=== PATIENT | male | born 1960 | race Caucasian/White ===

== ENCOUNTER 2016-07-28 10:20 | Emergency (ER) | payer MEDICARE, OTHER ==
[2016-07-28] MEDS ORDERED: LORazepam 2 MG/ML VIAL IVP ONE (10:35)
[2016-07-28] MEDS ORDERED: fentaNYL CITRATE/PF 100 MCG/ 2ML AMP IVP ONE (10:37)
--- NOTE | 2016-07-28 10:39 | ED Physician Documentation ---
Hand Injury - HISTORIAN Historian: patient, friend - [facility] Chief Complaint: Hand Injury Additional Information: sat in folding metal chair lt mid finger distal phalynx smash and lac w/nail avulsion Onset: just prior to arrival Where: home Severity: moderate Context: laceration, crush Location of Injury: L hand Modifying Factors: pain on movement Further Comments: yes (pt quite anxious and c/o sig pain) - ROS CONST: no problems GI/: denies: problems urinating, nausea, vomiting NEURO: none CVS/RESP: none EYES/ENT: none - PAST HX Past History: asthma (ethanol abuse--mild mental challenge--gerd--asthma-- anxiety) Allergies/Adverse Reactions: Allergies Allergy/AdvReac Type Severity Reaction Status Date / Time carbamazepine [From Tegretol] Allergy Verified 07/28/16 10:55 cephalexin monohydrate Allergy Verified 07/28/16 10:55 [From Keflex] ibuprofen [From Motrin] Allergy Verified 07/28/16 10:55 penicillin V Allergy Verified 07/28/16 10:55 Penicillins Allergy Verified 07/28/16 10:55 Home Medications: Ambulatory Orders Medication Instructions Recorded Acetaminophen [Tylenol] 325 mg PO Q4 PRN 07/28/16 Divalproex Sodium [Depakote] 500 mg PO 714 07/28/16 Hydrochlorothiazide 25 mg PO 07/28/16 LORazepam [Ativan] 0.5 mg PO 07/28/16 Lisinopril [Zestril] 40 mg PO 07/28/16 Mag Hydrox/Al Hydrox/Simeth 355 ml PO 07/28/16 [Antacid Liquid] - SOCIAL HX Smoking History: non-smoker Alcohol Use: none (x 23 yrs) Drug Use: none - FAMILY HX Family History: no significant history - REVIEWED ASSESSMENTS Nursing Assessment Reviewed: Yes Vitals Reviewed: Yes ED Results Lab/Radiology - Radiology Radiology Impressions: xray=open communited displaced fx lt middle finger - Orders Orders: ED Orders Category Date Time Status Place Saline Lock/IV Now Care 07/28/16 10:35 Ordered FINGER 2 VIEWS OR MORE [RAD] Stat Exams 07/28/16 Ordered LORazepam [Ativan] Med 07/28/16 10:35 Once 1 mg IVP NOW ONE fentaNYL CITRATE/PF [Duragesic] Med 07/28/16 10:37 Once 50 mcg IVP NOW ONE Hand Injury Physical Exam - Exam General Appearance: mild distress, anxious Hand: other (crush lac as abovve) Wrist: normal inspection Neuro: sensation nml, motor nml, digital nerve deficit (mild) Vascular: no vascular compromise Forearm/Elbow/Arm: uninjured above wrist Skin: warm/dry, normal color. No: cyanosis, diaphoresis, jaundice Head/ENT: nml inspection Neck/Back: nml inspection Resp/CVS: chest non-tender, breath sounds nml, heart sounds nml, no resp. distress, lungs clear, reg. rate & rhythm Abdomen: non-tender Discharge Clincal Impression: comminuted open displaced finger fx Home Medications: Ambulatory Orders Acetaminophen [Tylenol] 325 mg PO Q4 PRN 07/28/16 Divalproex Sodium [Depakote] 500 mg PO 714 07/28/16 Hydrochlorothiazide 25 mg PO 07/28/16 LORazepam [Ativan] 0.5 mg PO 07/28/16 Lisinopril [Zestril] 40 mg PO 07/28/16 Mag Hydrox/Al Hydrox/Simeth [Antacid Liquid] 355 ml PO 07/28/16 Comments: disc w/pt caregiver/DR FUENTES [facility] [place]. he will accept for repair ortho dept. Condition: Good Disposition: XFER [id number] HOSP Decision to Admit: [id number] Decision Time: 12:04
[2016-07-28] MEDS ORDERED: CLINDAMYCIN PHOSPHATE 300 MG in 0.9 % SODIUM CHLORIDE 50 ML IV ONE (11:58)
[2016-07-28] MEDS ORDERED: DIPH,PERTUSS(ACELL),TET VAC/PF 0.5 ML DISP.SYRIN IM ONE (11:58)
[2016-07-28] MEDS ORDERED: 0.9 % SODIUM CHLORIDE 500 ML IV ONE (11:59)
[2016-07-28] MEDS ORDERED: 0.9 % SODIUM CHLORIDE 1,000 ML IV ONE (12:30)
[2016-07-28] MEDS ORDERED: 0.9 % SODIUM CHLORIDE 100 ML IV ONE (12:31)
[2016-07-28 15:47] VITALS: BP 130/78
--- NOTE | 2016-07-28 18:26 | Diagnostic Imaging Report ---
[facility] [address] [facility].[address] [address] Report Submission Date: Jul 28, 2016 11:29:52 AM HAND FLESHER Patient Study Name: MASSIEL WARREN Date: Jul 28, 2016 10:51:36 AM HAND FLESHER Modality Type: CR Gender: M Description: UPPER EXTREMITY : 64 Institution: [facility] Physician VEENA MILTON - KHADIJAH Left 3rd digit CLINICAL HISTORY: Pain Technique AP lateral oblique FINDINGS: There is an open comminuted fracture of the tuft of the left 3rd digit. Soft tissue air is present. IMPRESSION: Open comminuted tuft fracture of the left 3rd digit Electronically signed on Jul 28, 2016 11:29:52 AM HAND FLESHER by: Eric SALAZAR
== END 2016-07-28 12:55 | disposition short-term general hospital (02) ==
LOC: ED 10:20
DX: S62.633B Displaced fracture of distal phalanx of left middle finger, initial encounter for open fracture (principal); W23.0XXA Caught, crushed, jammed, or pinched between moving objects, initial encounter; Y93.9 Activity, unspecified; Y99.9 Unspecified external cause status
CPT/HCPCS: 73140; J2060; J3010; J3490; J7030; J7060; 96374; 96376; 99283; S1016